=== PATIENT | male | born 1965 | race Caucasian/White ===

== ENCOUNTER 2019-03-05 20:54 | Emergency (ER) | payer OTHER ==
[~2019-03-05] VITALS: Ht 175.3 cm; Wt 104.5 kg
[2019-03-05 22:33] LABS: BASOPHILS % (AUTO) 0.8 % (0.0-2.0); EOSINOPHILS % (AUTO) 0.9 % (1.0-6.0); HEMATOCRIT 50.2 % (41-53); HEMOGLOBIN 16.6 g/dL (13.5-17.5); LYMPHOCYTES % (AUTO) 15.3 % (22.0-44.0); MEAN CORPUSCULAR HEMOGLOBIN 28.7 pg (26.0-34.0); MEAN CORPUSCULAR HGB CONC 33.1 G/dL (31.0-37.0); MEAN CORPUSCULAR VOLUME 87 fL (80-100); MONOCYTES # (AUTO) 0.4 K/uL (0.1-1.0); MONOCYTES % (AUTO) 6.3 % (2.0-9.0); NEUTROPHILS # (AUTO) 5.2 K/uL (1.8-7.7); NEUTROPHILS % (AUTO) 76.7 % (40.0-70.0); PLATELET COUNT (AUTO) 257 K/uL (150-450); RED CELL DISTRIBUTION WIDTH 13.9 % (11.5-14.5)
[2019-03-05 22:43] LABS: ANION GAP 7 mmol/L (8-16); CALCIUM, TOTAL 9.2 mg/dL (8.8-10.5); CARBON DIOXIDE 29 mmol/L (22-29); CHLORIDE 104 mmol/L (98-107); CREATININE 0.87 mg/dL (0.60-1.30); GLOMERULAR FILTR. RATE CALC > 60 mL/min (>60); GLUCOSE,RANDOM 93 mg/dL (70-110); POTASSIUM 4.2 mmol/L (3.5-5.1); SODIUM SERUM 140 mmol/L (136-145); UREA NITROGEN, BLOOD 14 mg/dL (7-18)
[2019-03-05 22:44] LABS: GLUCOSE,POINT OF CARE 92 MG/DL (70-110)
[2019-03-05] MEDS ORDERED: SILD25 PO (22:48)
[2019-03-05] MEDS ORDERED: LORA0.5T2 PO (22:48)
[2019-03-05] MEDS ORDERED: GLIP5 PO (22:48)
[2019-03-05] MEDS ORDERED: ATOR20TA86 PO (22:48)
[2019-03-05] MEDS ORDERED: BUSP10TA23 PO (22:48)
[2019-03-05] MEDS ORDERED: METF-960 PO (22:48)
[2019-03-05] MEDS ORDERED: BENZ2TAB10 PO (22:48)
[2019-03-05] MEDS ORDERED: HYD25 PO (22:48)
[2019-03-05] MEDS ORDERED: LAMO100 PO (22:48)
[2019-03-05] MEDS ORDERED: ARIP10TA8 PO (22:48)
[2019-03-05 22:50] LABS: ALANINE AMINOTRANSFERASE 151 U/L (12-78); ALBUMIN 4.4 g/dL (3.4-5.0); ALKALINE PHOSPHATASE 95 U/L (46-116); ASPARTATE AMINOTRANSFERASE 122 U/L (15-37); BILIRUBIN,TOTAL 0.7 mg/dL (0.1-1.0); TOTAL PROTEIN, SERUM 7.5 g/dL (6.4-8.2)
[2019-03-05 23:48] LABS: AMPHET/METH SCREEN,URINE NEGATIVE (NEGATIVE); BARBITURATE SCREEN, URINE NEGATIVE (NEGATIVE); BENZODIAZEPINES SCREEN,URINE NEGATIVE (NEGATIVE); CANNABINOID SCREEN,URINE NEGATIVE (NEGATIVE); COCAINE SCREEN,URINE NEGATIVE (NEGATIVE); METHADONE SCREEN, URINE NEGATIVE (NEGATIVE); OPIATE SCREEN,URINE NEGATIVE (NEGATIVE)
[2019-03-05 23:49] LABS: PHENCYCLIDINE SCREEN,URINE NEGATIVE (NEGATIVE)
[2019-03-06] MEDS ORDERED: LORazepam 1 MG TABLET PO ONE (02:00)
[2019-03-06] MEDS ORDERED: HydrOXYzine HCL 25 MG TABLET PO ONE (02:00)
[2019-03-06 03:00] VITALS: BP 169/99
== END 2019-03-06 03:50 | disposition home or self-care (01) ==
LOC: EMS 21:00
DX: F32.9 Major depressive disorder, single episode, unspecified (principal); F43.10 Post-traumatic stress disorder, unspecified; R79.89 Other specified abnormal findings of blood chemistry; F41.9 Anxiety disorder, unspecified; Z88.8 Allergy status to other drugs, medicaments and biological substances; Z79.84 Long term (current) use of oral hypoglycemic drugs
CPT/HCPCS: 36415; 80053; 80307; 82962; 85025; 99285; G0480